=== PATIENT | male | born 1965 | race Caucasian/White ===

== ENCOUNTER → 2018-06-05 07:06 | Outpatient (CLI) | payer BC, SELFPAY ==
[2018-06-05 08:35] LABS: Absolute Lymphocyte Count 3.41 X10^3/ul (0.83-4.51); Absolute Neutrophil Count 4.7 X10^3/uL (2.0-7.7); Basophil# 0.08 X10^3/uL; Basophil% 0.8 % (0-1); Eosinophil# 0.32 X10^3/uL; Eosinophils% 3.3 % (0-5); Hematocrit 42.4 % (40-54); Hemoglobin 14.2 g/dl (13.0-16.5); Lymphocyte # 3.41 X10^3/ul (4.0); Lymphocyte % 34.9 % (19-41); Mean Corp Hgb Conc 33.5 g/gl (32-36); Mean Corpuscular Hgb 32.5 pg (27.0-32.0); Mean Platelet Vol. 9.4 fl (6.2-12.0); Monocyte# 1.22 X10^3/uL; Monocyte% 12.5 % (0-10); Neutrophil # 4.71 X10^3/uL (2.7-7.7); Neutrophil % 48.3 % (47-70); POSITIVE COUNT NO; POSITIVE DIFFERENTIAL NO; POSITIVE MORPHOLOGY NO; Platelet Count 297 K/mm3 (150-450); RBC Distribution Width CV 13.1 % (11.6-14.6); RBC Distribution Width SD 46.2 fl (35.1-43.9); Red Blood Count 4.37 M/mm3 (4.6-6.2); White Blood Count 9.8 K/mm3 (4.4-11.0)
[2018-06-05 09:07] LABS: ALB/GLOB Ratio 1.1 RATIO (0.9-2.4); AST(SGOT) 19 U/L (15-37); Alanine Aminotransfer ALT/SGPT 28 U/L (16-61); Albumin, Serum 3.9 g/dL (3.2-5.0); Alkaline Phosphatase 59 U/L (45-117); Anion Gap 6 (5-15); BUN 17 mg/dL (7-18); Calcium,Total 8.8 mg/dL (8.5-10.1); Chloride 105 mmol/L (98-107); Cholesterol 219 mg/dL (200); Creatinine, Serum 1.06 mg/dL (0.70-1.30); EST Glomerular Filtration Rate 78 mL/min (>60); Est Glom Filt Rate - Afr Amer 94 mL/min (>60); Globulin 3.5 g/dL (2.2-4.2); Glucose 93 mg/dL (74-106); High Density Lipoprotein 43 mg/dL; Potassium 4.4 mmol/L (3.5-5.1); Protein, Total 7.4 g/dL (6.4-8.2); Sodium Level 139 mmol/L (136-145); Thyroid Stim Hormone (TSH) 2.12 uIU/mL (0.358-3.74); Triglycerides 79 mg/dL; Very Low Density Lipoprotein 16 mg/dL (5-40)
== END ==
DX: R07.89 Other chest pain (principal)
CPT/HCPCS: 36415; 80053; 80061; 84443; 85025

== ENCOUNTER → 2018-12-01 16:58 | Outpatient (CLI) | payer BC, SELFPAY ==
--- NOTE | 2018-12-01 17:07 | MRI_ITS ---
STUDY: MRI CERVICAL SPINE WITHOUT CONTRAST REASON FOR EXAM: Male, 53 years old. Neck pain TECHNIQUE: Standardized fat and water weighted pulse sequences were obtained in the sagittal and axial planes. COMPARISON: None FINDINGS: Normal foramen magnum and brainstem-cervical cord junction. Normal craniovertebral junction. Normal anterior atlantoaxial articulation. Normal odontoid process. Normal cervical lordosis. Normal vertebral bodies and posterior osseous elements. C2-3: Normal endplates. Normal disc height, signal and morphology. Normal central canal and intervertebral neural foramina. C3-4: Endplate spondylosis. Central and paracentral disc bulge. Degenerative changes of the bilateral facet joints and uncovertebral joints. Mild narrowing of the central canal and the bilateral intervertebral neural foramina. C4-5: Endplate spondylosis. Central and paracentral disc bulge. Degenerative changes of the bilateral facet joints and uncovertebral joints. Mild narrowing of the central canal. Mild right and moderate left intervertebral neural foraminal narrowing. C5-6: Endplate spondylosis. Central and paracentral disc bulge. Degenerative changes of the bilateral facet joints and uncovertebral joints. Moderate narrowing of the central canal and severe narrowing of the bilateral intervertebral neural foramina. C6-7: Anterior fusion in good alignment with a solid bony bridging. Normal central canal and intervertebral neural foramina. C7-T1: Normal endplates. Normal disc height, signal and morphology. Normal central canal and intervertebral neural foramina. Normal cervical cord. Normal visualized soft tissue structures. MRI/Spine Cervical (Routine) IMPRESSION: Multilevel degenerative changes most severe at C5-6, as described above. Electronically Signed: Lynette Amato MD at 6:29 EST Tel , Service support ,
== END ==
PROVIDERS: Referring Provider Anesthesiology Pain Medicine; Visit Provider Anesthesiology Pain Medicine
DX: M54.2 Cervicalgia (principal)
CPT/HCPCS: 72141

== ENCOUNTER → 2019-08-03 06:31 | Outpatient (CLI) | payer BC, SELFPAY ==
[2019-08-03 07:25] LABS: Hematocrit 41.9 % (40-54); Hemoglobin 13.8 g/dL (13.0-16.5); Mean Corp Hgb Conc 32.9 g/dL (32-36); Mean Corpuscular Hgb 31.8 pg (27.0-32.0); Mean Corpuscular Volume 96.5 fL (80-94); Mean Platelet Vol. 9.6 fl (6.2-12.0); Platelet Count 284 K/mm3 (150-450); RBC Distribution Width CV 12.8 % (11.6-14.6); RBC Distribution Width SD 45.7 fl (35.1-43.9); Red Blood Count 4.34 M/mm3 (4.6-6.2); White Blood Count 7.1 K/mm3 (4.4-11.0)
[2019-08-03 08:12] LABS: ALB/GLOB Ratio 1.2 RATIO (0.9-2.4); AST(SGOT) 18 U/L (15-37); Alanine Aminotransfer ALT/SGPT 22 U/L (16-61); Albumin, Serum 3.8 g/dL (3.2-5.0); Alkaline Phosphatase 61 U/L (45-117); Anion Gap 4 (5-15); BUN 16 mg/dL (7-18); BUN/Creat Ratio 15.4 RATIO (10-20); Chloride 109 mmol/L (98-107); Cholesterol 191 mg/dL (200); Creatinine, Serum 1.04 mg/dL (0.70-1.30); EST Glomerular Filtration Rate 79 mL/min (>60); Est Glom Filt Rate - Afr Amer 96 mL/min (>60); Globulin 3.3 g/dL (2.2-4.2); Glucose 102 mg/dL (74-106); High Density Lipoprotein 52 mg/dL; Potassium 4.7 mmol/L (3.5-5.1); Protein, Total 7.1 g/dL (6.4-8.2); Sodium Level 140 mmol/L (136-145); Thyroid Stim Hormone (TSH) 1.45 uIU/mL (0.358-3.74); Triglycerides 71 mg/dL; Very Low Density Lipoprotein 14 mg/dL (5-40)
== END ==
DX: Z13.220 Encounter for screening for lipoid disorders (principal); D64.9 Anemia, unspecified; Z12.5 Encounter for screening for malignant neoplasm of prostate; R53.82 Chronic fatigue, unspecified; E87.8 Other disorders of electrolyte and fluid balance, not elsewhere classified
CPT/HCPCS: 36415; 80053; 80061; 84153; 84443; 85027; G0103

== ENCOUNTER 2022-01-23 06:23 | Outpatient (CLI) | payer BC, SELFPAY ==
--- NOTE | 2022-01-23 06:40 | MRI_ITS ---
STUDY: MRI CERVICAL SPINE WITHOUT CONTRAST REASON FOR EXAM: Male, 56 years old. NECK PAIN, RADICULOPATHY, RT HAND NUMBNESS, HX PRIOR SURGERY 14 YRS AGO TECHNIQUE: Standardized fat and water weighted pulse sequences were obtained in the sagittal and axial planes. COMPARISON: MRI of the cervical spine dated December 01, 2018 FINDINGS: Normal foramen magnum and brainstem-cervical cord junction. Normal craniovertebral junction. Normal anterior atlantoaxial articulation. Normal odontoid process. There is straightening of the normal cervical lordosis. Disc desiccation is present at all levels. Stable anterior cortical plate-screw construct and interbody grafts at the C6-C7 levels. C2-3: Normal endplates. Diffuse disc desiccation. Normal disc height and morphology. Normal central canal and intervertebral neural foramina. C3-4: Normal endplates. Mild to moderate disc space narrowing with a mild diffuse disc spur complex contributing to mild central canal stenosis and mass effect on the anterior aspect of the cord without direct compression. Normal right neural foramen. Mild left foraminal stenosis without nerve root compression due to uncovertebral and facet joint hypertrophy. C4-5: Normal endplates. Diffuse disc desiccation mild disc space narrowing posteriorly with an associated shallow left paracentral disc protrusion resulting in compression on anterior aspect of the cord and mild focal central canal stenosis and compression of the exiting left nerve root. Mild left foraminal stenosis due to uncovertebral and facet joint hypertrophy. Normal right neural foramen. C5-6: Moderate disc space narrowing with a diffuse disc osteophyte complex resulting in compression on the left anterior aspect of the cord and mild mass effect on the right anterior aspect of the cord. Moderate right foraminal stenosis with nerve root compression secondary to uncovertebral hypertrophy. Normal left neural foramen. C6-7: Normal endplates. Normal disc height, signal and morphology. Normal central canal and intervertebral neural foramina. C7-T1: Normal endplates. Normal disc height, signal and morphology. Normal central canal and intervertebral neural foramina. Normal cervical cord. There is no demonstrated cervical cord syrinx cavity. Normal visualized soft tissue structures. MRI/Spine Cervical (Routine) IMPRESSION: 1. Multilevel degenerative changes, as described above. No significant interval change from the prior study. 2. Mild central canal stenosis with either mass effect or compression of the cord at C4-C5 and C5-C6. Electronically Signed: Pilo Beyer MD at 13:49 EDT ,
== END 2022-01-23 23:59 | disposition home or self-care (01) ==
PROVIDERS: Referring Provider Anesthesiology Pain Medicine; Visit Provider Anesthesiology Pain Medicine
DX: M54.12 Radiculopathy, cervical region (principal)
CPT/HCPCS: 72141

== ENCOUNTER → 2022-03-01 | Outpatient (CLI) | payer BC, SELFPAY ==
--- NOTE | 2022-03-01 14:49 | ECHOD_ITS ---
Reason For Study: PRE OP Procedure This was a 2D Doppler, Color Flow transthoracic echocardiogram. Exam performed in department. Left Ventricle Normal LV size. Moderate concentric left ventricular hypertrophy. Left ventricular systolic function is normal. The estimated ejection fraction is 60 %. Stage 2 diastolic dysfunction. No regional wall motion abnormalities noted. Right Ventricle Normal RV size. Normal systolic function. Atria Normal left atrium. Normal right atrium. Mitral Valve Normal mitral valve. Tricuspid Valve Normal tricuspid valve. Mild (1+) tricuspid valve insufficiency. Pulmonary artery systolic pressure is 24 mmHg. Aortic Valve Trisinus/trileaflet aortic valve. Pulmonic Valve Normal pulmonic valve. Great Vessels Normal aortic root. The pulmonary artery is normal size. Normal inferior vena cava. Pericardium/Pleural No pericardial effusion. MMode/2D Measurements & Calculations LVIDd: 4.5 cm IVSd: 1.5 cm Ao root diam: 2.9 cm LVIDs: 2.2 cm LVPWd: 1.3 cm RVDd: 3.5 cm FS: 51.0 % LAV(MOD-bp): 46.2 ml LVAd ap4: 23.6 cm2 LVAd ap2: 24.5 cm2 LAV(MOD-bp) Indexed: 23.0 ml/m2 LVLd ap4: 7.5 cm LVLd ap2: 7.5 cm LAV(MOD-sp2): 53.5 ml EDV(MOD-sp4): 62.2 ml EDV(MOD-sp2): 64.9 ml LAV(MOD-sp4): 39.4 ml EDV(sp4-el): 63.0 ml EDV(sp2-el): 67.8 ml LVAs ap4: 11.9 cm2 LVAs ap2: 13.7 cm2 LVLs ap4: 6.0 cm LVLs ap2: 6.6 cm ESV(MOD-sp4): 23.9 ml ESV(MOD-sp2): 25.7 ml ESV(sp4-el): 20.3 ml ESV(sp2-el): 24.0 ml EF(MOD-sp4): 61.6 % EF(MOD-sp2): 60.4 % EF(sp4-el): 67.8 % SV(MOD-sp4): 38.3 ml SV(MOD-sp2): 39.2 ml SV(sp4-el): 42.7 ml LA dimension(2D): 3.7 cm Doppler Measurements & Calculations MV E max guevara: 73.8 cm/sec Lat Peak E' Guevara: 6.8 cm/sec Med Peak E' Guevara: 8.6 cm/sec MV A max guevara: 64.8 cm/sec E/E' lat: 10.9 E/E' med: 8.5 MV E/A: 1.1 Ao V2 max: 145.6 cm/sec LV V1 max: 123.6 cm/sec TR max guevara: 229.4 cm/sec Ao max P.1 mmHg LV V1 max P.4 mmHg TR max P.0 mmHg ECHO/Echo Complete Interpretation Summary Normal LV size. Left ventricular systolic function is normal. The estimated ejection fraction is 60 %. Moderate concentric left ventricular hypertrophy. Stage 2 diastolic dysfunction. Ordering Physician: Ritesh Granger Referring Physician: Ritesh Granger Performed By: Dione Dumont RCS
== END | disposition home or self-care (01) ==
LOC: CVS 14:48
PROVIDERS: Referring Provider Internal Medicine Cardiovascular Disease; Visit Provider Internal Medicine Cardiovascular Disease
DX: I49.3 Ventricular premature depolarization (principal); R94.31 Abnormal electrocardiogram [ECG] [EKG]
CPT/HCPCS: 93306

== ENCOUNTER 2022-03-06 10:59 | Observation (INO) | payer BC, SELFPAY ==
--- NOTE | 2022-02-26 07:10 | EKG12_ITS ---
Test Reason : PRE OP Blood Pressure : / mmHG Vent. Rate : 070 BPM Atrial Rate : 070 BPM P-R Int : 156 ms QRS Dur : 094 ms QT Int : 352 ms P-R-T Axes : 083 070 099 degrees QTc Int : 380 ms Sinus rhythm with Premature supraventricular complexes Biatrial enlargement Septal infarct , age undetermined Lateral infarct , age undetermined Abnormal ECG Confirmed by OLIVIA AYOUB MD ([id number]), acquisitions editor DAVE WILEY ([id number]) on 02/26/2022 1:30:28 PM Referred By: Jamaal Gurrola Confirmed By:OLIVIA AYOUB MD
[2022-02-26 07:57] LABS: Absolute Lymphocyte Count 2.22 X10^3/uL (0.83-4.51); Absolute Neutrophil Count 4.3 X10^3/uL (2.0-7.7); Basophil# 0.08 X10^3/uL; Eosinophils% 3.9 % (0-5); Hematocrit 43.7 % (40-54); Hemoglobin 14.5 g/dL (13.0-16.5); Lymphocyte # 2.22 X10^3/ul (0.83-4.51); Lymphocyte % 28.8 % (19-41); Mean Corp Hgb Conc 33.2 g/dL (32-36); Mean Corpuscular Hgb 32.6 pg (27.0-32.0); Mean Corpuscular Volume 98.2 fL (80-94); Mean Platelet Vol. 9.7 fl (6.2-12.0); Monocyte% 10.4 % (0-10); NRBC Flagged by Analyzer 0 % (0-5); Neutrophil # 4.28 X10^3/uL (2.7-7.7); Neutrophil % 55.5 % (47-70); Platelet Count 309 K/mm3 (150-450); RBC Distribution Width CV 12.8 % (11.6-14.6); Red Blood Count 4.45 M/mm3 (4.6-6.2); White Blood Count 7.7 K/mm3 (4.4-11.0)
[2022-02-26 08:30] LABS: Anion Gap 4 (5-15); BUN 15 mg/dL (7-18); BUN/Creat Ratio 14.3 RATIO (10-20); Calcium,Total 8.6 mg/dL (8.5-10.1); Chloride 108 mmol/L (98-107); Creatinine, Serum 1.05 mg/dL (0.70-1.30); EST Glomerular Filtration Rate 77 mL/min (>60); Est Glom Filt Rate - Afr Amer 94 mL/min (>60); Glucose 113 mg/dL (74-106); Potassium 4.5 mmol/L (3.5-5.1); Sodium Level 138 mmol/L (136-145)
[2022-02-26 09:23] LABS: Magnesium 2.4 mg/dL (1.6-2.6)
[2022-02-26 09:54] LABS: HIV - WCH Non-Reactive (Nonreactive); Hepatitis B Surface Antibody Non-Reactive; Hepatitis C Antibody Non-Reactive (Nonreactive)
[2022-02-27 11:10] LABS: Hepatitis A AB, Total Negative (Negative)
--- NOTE | 2022-03-05 14:57 | HP.PCM_ITS ---
History and Physical Date of Admission: 03/06/22 MR#:[id number]:[id number]: ZACK RODRIGUEZRep #:[id number]:[id number] Provider:Dr. Jamaal Gurrola, Age/Sex: 56/M [facility] [place] Int[place] Intake Visit Reasons: cervical spine Allergies No Known Allergies Allergy (Verified 02/20/22 13:43) PFSH Medical History Arthritis History of steroid therapy Injury of head and neck Leg cramps Smoker Surgical History (Updated 02/20/22 @ 13:53 by Julissa Mendiola) previous ACDIF C6/7 Social History Smoking Status: Current every day smoker tobacco type: cigarettes CERVICAL SPINE Details: Parts of this documentation were recorded by a scribe, this documentation accurately reflects the service provided and the decisions made by me, Dr. Jamaal Gurrola, 02/09/22 0804. ZACK RODRIGUEZ is a 56 year old M NEW Pt here today for neck pain. Pt states he has been having neck pain for about 4 months. Pt states 14 years ago he had a disc surgery and has had ongoing issues since. Pt states he has been going to Dr. Golden for injections with the last one being a few weeks ago but only slightly helped for 4 days. Pt states right side is worse than the left. Pt states he has radicular pain all the way down his right arm all the way down to his finger tips. Pt describes discomfort as and electric shock down his arm. Pt also states he has numbness and tingling in his right arm down to his finger tips which is worsening. Pt states if he grabs his steering wheel to drive this intensifies the pain and shocking feeling. Pt states he has been going to a Chiropractor which did not help at all and felt worse after treatments. Zack is a most pleasant gentleman 56 years old who has a chief complaint of pain in the right side of his neck that radiates down his right arm in a classic C6 dermatome. This started many many months ago and is gradually gotten worse and for the last several weeks has been severe. 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 He had an anterior cervical fusion at C6-7 about 14 years ago. He did well with the surgery and it helped him for a very long time. On examination he has positive Spurling's to the right side. He has pain with extension or flexion of the cervical spine. Has mild weakness of the C6 extensors of the wrist on the right side. Has decreased brachioradialis reflex on the right as compared to the left. The other muscles all have good muscle strength bilaterally. He has absent triceps on both side 1+ biceps reflexes on both sides. He has no long tract signs. Clonus is absent Babinski's are downgoing. Plain x-rays of his cervical spine notes read that he has a decreased disc space at C5-6 above the old 6 7 fusion. The 6 7 fusion appears good. Hardware also appears to be in great good shape. MRI scan done recently demonstrates that he has foraminal stenosis because of an uncinate process hypertrophy at C5-6 on the right side consistent with his C6 symptomatology. We will schedule him for anterior cervical fusion at C5-6 with a stand-alone plate. I will see him again at preop. Ortho Exam General General: Yes no acute distress Neurologic: Yes alert and Yes oriented x3 Psychologic: Yes reasonable and appropriate Coding Level of Care Code Off vis,new,level 3 Diagnoses Cervical disc disorder at C5-C6 level with radiculopathy M50.122 Time Spent (min) 30 Assessment and Plan Assessment and Plan (1) Cervical disc disorder at C5-C6 level with radiculopathy: Status: Acute Plan Details Other Orders: Orders: Cerv Spine 2 or 3 Views Today M54.2
[2022-03-06] VITALS (14 sets, daily range): BP systolic 114–139; BP diastolic 66–98; PULSE 71–83; RESP 16–18; TEMP 36.4–36.8; O2SAT 95–100; BMI 24.6
[2022-03-06] MEDS: Lactated Ringers 1,000 ML 15 ML IV ×2 (06:20→11:42)
[2022-03-06 06:21] LABS: Bedside Glucose 178 mg/dL (74-106)
[2022-03-06] MEDS: dexAMETHasone 10 MG/ML Vial 8 MG IV (06:21)
[2022-03-06] MEDS: Acetaminophen 500 MG Tablet 1000 MG PO ×3 (06:21→21:08)
--- NOTE | 2022-03-06 07:30 | RAD_ITS ---
EXAM: XR CERVICAL SPINE, 1 VIEW CLINICAL INDICATION: ERAS, ANTERIOR CERVICAL FUSION C5-6 TECHNIQUE: Lateral view of the cervical spine. This report was created using [employer] report generation technology. COMPARISON: February 09, 2022 FINDINGS: VERTEBRAE: Radiographic marker at the C6 vertebral body. Anterior fusion of C6 and C7. Preserved vertebral body height. No acute fracture. No spondylolisthesis. Preservation of the normal cervical lordosis. No significant facet arthropathy. DISC SPACES: Disc space narrowing and vertebral body spurring noted at C3-4 and C5-6. SOFT TISSUES: Unremarkable. No prevertebral soft tissue widening. TUBES, LINES AND DEVICES: Orotracheal tube in place. RAD/Spine 1 View Any Level IMPRESSION: Surgical marker at C6 vertebral body. Electronically Signed: Clement Rosas MD at 16:34 EDT ,
--- NOTE | 2022-03-06 07:30 | DISC_PTH ---
PATIENT: ZACK RODRIGUEZ LOC: MS3 U#:[id number] AGE/SX: 57/M [facility] [place]06[facility]: Dr. Jamaal Gurrola DO : 1965 BED: 1 DIS: 03/07/2022 SPEC #: [id number] RECD: 03/06/22 10:49 STATUS: KARLA BOWEN #: [id number] OVNDA: 03/06/22 07:[address]: Jamaal Gurrola DEPT: SURGICAL PATHOLOGY RECD BY: Norma Lyles Tissues: Intervertebral disc, NOS Procedures: Surgery Specimen Level III HEADER OPERATION: ERAS, anterior cervical fusion C5-C6 with standalone cage PRE-OP DIAGNOSIS: Cervical disc disorder at C5-C6 level with radiculopathy TISSUE SUBMITTED: Cervical spine disc MICROSCOPIC DIAGNOSIS Cervical spinal disc, C5-C6: Fragments of fibrocartilaginous tissue with reactive and degenerative changes and bone. LUIS:christopher 03/07/2022 MICROSCOPIC DESCRIPTION Slides are reviewed. GROSS DESCRIPTION Received in fixative is one container labeled with the patient's name and designated cervical spine disc. The specimen consists of multiple pieces of dotson-pink, indurated tissue that in aggregate measure 5 x 3 x 0.3 cm. The specimen is totally submitted in two cassettes. / SJ:rg 03/06/2022 TC:5 CPT: 47270
[2022-03-06] MEDS: Heparin 10,000 UNITS/10 ML Vial 10000 UNITS (08:00)
[2022-03-06] MEDS: Cefazolin 2 GM in 0.9% Normal Saline 100 ML IV (08:00)
--- NOTE | 2022-03-06 08:26 | RAD_ITS ---
EXAM: XR CERVICAL SPINE, 1 VIEW CLINICAL INDICATION: ANTERIOR CERVICAL FUSION C5-6 TECHNIQUE: Lateral view of the cervical spine. This report was created using [employer] report generation technology.Exam done 03.06.22 but is only now available for review. COMPARISON: study done earlier. FINDINGS: VERTEBRAE: Unremarkable. Preserved vertebral body height. No acute fracture. No spondylolisthesis. Preservation of the normal cervical lordosis. No significant facet arthropathy. DISC SPACES: C5-6: Surgical instrument pointing at this level. There is a disc spacer. C6-7: Anterior fusion plate in place. There is a disc spacer. SOFT TISSUES: Unremarkable. No prevertebral soft tissue widening. LUNG APICES: Clear. RAD/Spine 1 View Any Level IMPRESSION: Anterior fusion at C6-7. Electronically Signed: Steffen Braun MD at 17:42 EDT Reading Location ID and State: [facility] / [place] , Service support ,
[2022-03-06] MEDS: THROMBIN (RECOMBINANT) 20,000 UNIT VIAL 20000 UNIT TOPICAL (08:52)
--- NOTE | 2022-03-06 09:23 | RAD_ITS ---
EXAM: XR CERVICAL SPINE, 1 VIEW CLINICAL INDICATION: ANTERIOR CERVICAL FUSION C5-6 TECHNIQUE: Lateral view of the cervical spine. This report was created using [employer] report generation technology. Current exam done 03.06.22 but is only now available for review. COMPARISON: study done earlier. FINDINGS: VERTEBRAE: Preserved vertebral body height. No acute fracture. No spondylolisthesis. Preservation of the normal cervical lordosis. No significant facet arthropathy. DISC SPACES: C5-6: Single superior anterior fusion screw in place. There is a disc spacer. C6-7: Anterior fusion plate in place. There is a disc spacer. SOFT TISSUES: Unremarkable. No prevertebral soft tissue widening. LUNG APICES: Clear. RAD/Spine 1 View Any Level IMPRESSION: Anterior fusion at C5-6 and C6-7. Electronically Signed: Steffen Braun MD at 17:41 EDT Reading Location ID and State: [facility] / [place] , Service support ,
--- NOTE | 2022-03-06 10:00 | RAD_ITS ---
EXAM: XR CERVICAL SPINE, 1 VIEW CLINICAL INDICATION: ANTERIOR CERVICAL FUSION C5-6 TECHNIQUE: Lateral view of the cervical spine. This report was created using [employer] report generation technology. COMPARISON: study done earlier. Exam done 03.06.22 but is only now available for review. FINDINGS: VERTEBRAE: Unremarkable. Preserved vertebral body height. No acute fracture. No spondylolisthesis. Preservation of the normal cervical lordosis. No significant facet arthropathy. DISC SPACES: C5-6: Anterior fusion screws in place. There is a disc spacer. C6-7: Anterior fusion plate in place. There is a disc spacer. SOFT TISSUES: Unremarkable. No prevertebral soft tissue widening. LUNG APICES: Clear. RAD/Spine 1 View Any Level IMPRESSION: Anterior fusion at C5-6 and C6-7. Electronically Signed: Steffen Braun MD at 17:41 EDT Reading Location ID and State: [facility] / [place] , Service support ,
--- NOTE | 2022-03-06 11:06 | OP.PCM_ITS ---
Report of Operation Date of Procedure: 03/06/22 Description of Surgical Findings:: Preoperative diagnosis: Foraminal stenosis with severe right C6 radiculopathy C5-6 Postoperative diagnosis: The same Procedures: #1 anterior cervical fusion C5-6 CPT code 13809 #2 stand-alone cage C5-6 CPT code 06215 Surgeon: Dr. Gurrola First assistants: Rula Bauer PUBLIC HEALTH AIDE and Sudha WATSON Anesthesia: General endotracheal anesthesia administered by [facility] EBL: 25 cc Drains: 1/4 inch [place] Complications: None Procedure: Patient was taken to the OR where he was placed in the supine position on the operating table. He was then placed under general endotracheal anesthesia. A Frances catheter was inserted. Neuro monitoring placed their leads on the patient. Kerlix loop was placed on each wrist in order to pull the shoulders down for x-rays subsequently. A preoperative x-ray was taken with a needle marker in place to know where to start the incision the skin was marked with a very small laceration using the end of a second needle. The right crest and the neck were then prepped and draped in standard fashion. Initially we obtained the bone marrow aspirate from the right ASIS. There was small puncture incision my workers compensation claims assistant placed a Jamshidi needle on the ASIS and tamped it down into the bone marrow and obtained 60 cc of the patient's BMA that was then handed off to the quality control engineering technician was in the room. The quality control engineering technician was then spun down the stem cell from the other cells and concentrated them about 10 times and handed them back to us. I then made an incision over at that predetermined place in line with longer's lines starting in the midline in going to the edge of the right sternocleidomastoid muscle. This was above the old incision with his original surgery was done many years ago. Then elevated the subcutaneous tissues off of the platysma above and below I then split the platysma longitudinally in line with its fibers. Then developed the superficial cervical fascia followed by the exploitation of the pretracheal fascia. Fashion I was able to retract the this trachea and esophagus and strap muscles to the left the sternocleidomastoid and the carotid sheath to the right. Skin good access to the precervical fascia. I opened the pretreatment cervical fascia right where we felt the anterior osteophytes thought to be C5-6 I also was able to observe the top of the old C6-7 plate. Put a needle marker in place and an intraoperative x-ray was taken to confirm that we were indeed at C5-6. We removed the needle and cauterized a hole in the anterior annulus so as to not lose our level. Then cauterized the edge of the longus coli muscles on either side and put the self-retaining group account director retractors in place giving us good access at C5-6. I cut the anterior annulus with a 15 blade removed it and then used a bur to flatten the lip on both halves. Then removed more nucleus from within the disc base. I removed some of the cartilage from the left side including some of the endplate cartilage and put the intervertebral body distractors in place to open up the right side. I then removed the nucleus all the way back to the uncinate process. Note that he had obvious foraminal stenosis using the rao bur I was able to bur the uncinate process repeatedly note that this was a tedious procedure where we would bur some followed by the instillation of cold saline. This was done to keep the both the bur cool and the bone cool since the bone was up against the C6 nerve. This would prevent thermal damage to the nerve. This was done repeatedly until it was a very thin shell of bone left over the base of the C6 nerve. Using sharp curettes I removed the remaining shell of bone right off of the base of the nerve completely decompressing it. I then checked it again with a nerve probe and was found to be satisfactory with completely open foramen. I then removed remaining cartilage off both endplates and then I all moved to the distractor to the right side and then remove the other remaining cartilage off both endplates there I used a rao bur also to bur the uncinate processes on each side to make more room for a large cage. We then took her measurements for the cage we decided to use an 8 mm high cage of the stand-alone variety. I used a broach to broach the space repeatedly to get good bleeding endplate. We then filled an 8 mm cage with demineralized bone matrix. It was then soaked in the patient's own concentrated stem cells. Then tamped into place and countersunk it a couple of millimeters. Using the angled awl I was able to punch a hole at an angle through the guide and I used a angled U joint screwdriver to inserted and countersink it Plast its locking mechanism. 1 into C5. We then put the 1 down into C6 on the opposite side of the cage in the same fashion by using the awl followed by the insertion of the 14 mm screw. This was observed with x-ray was found to be very satisfactory with good position of both screws and that the cage. We then placed frame directly over the case to prevent adhesions to the trachea or the esophagus. Noted we thoroughly irrigated with copious amounts of sterile saline saline repeatedly throughout the case. A 1/4 inch [place] drain was left in place I then closed the platysma and running fashion with 5-0 Vicryl followed closure with subcutaneous tissues with 5-0 Vicryl in interrupted fashion this approximated the skin there was no need for other stitches. Safety pin was placed through the drain to prevent a suction into the wound and sterile dressings were then applied. The patient was then recovered in the OR moved to his hospital bed and taken to recovery in satisfactory condition. Is the end of operative summary on Ludwig Arita. This is Dr. Gurrola dictating.
[2022-03-06] MEDS: Lactated Ringers 1,000 ML 100 ML IV (13:33)
[2022-03-06] MEDS: Ensure Surgery 237 ML LIQUID PO ×2 (13:33→16:36)
[2022-03-06] MEDS: 0.9% Saline Lock 10 ML Syringe IV ×5 (13:34→23:56)
[2022-03-06] MEDS: dexAMETHasone 4 MG/ML Vial IV ×2 (13:34→18:30)
[2022-03-06] MEDS: Morphine 4 MG/ML Syringe IV (13:34)
--- NOTE | 2022-03-06 15:07 | PN.HOSP_ITS ---
Subjective Subjective Mr. Arita is a 57-year-old white male who had been experiencing neck pain for approximately 4 months after previous surgical fusion at C6 and C7 14 years ago. He had been seeing Dr. Golden for injections and this helped some but his radicular symptoms were worsening and he was having more neuropathic issues. He had also been undergoing primary care nurse practitioner and was feeling worse after his treatments. An MRI was done and demonstrated foraminal stenosis secondary to uncinate process hypertrophy at C5-C6 and he was scheduled for an anterior cervical fusion at C5-C6 which was performed today. Postoperatively a 1/4 inch [place] drain was placed. We have been consulted for postoperative medical management. Past medical history includes arthritis and history of tobacco abuse. Patient is currently only on ibuprofen. He had a preop echocardiogram which showed an EF of 60% moderate concentric left hypertrophy and stage II diastolic dysfunction. He takes no medication for hypertension. Patient is currently complaining of some pain however has pain medication ordered. He also is complaining of hunger. Objective Data Objective Data Vital Signs: Vital Signs Temp Pulse Resp BP Pulse Ox 97.9 F 71 18 117/86 H 95 03/06/22 14:55 03/06/22 14:55 03/06/22 14:55 03/06/22 14:55 03/06/22 14:55 Oxygen Flow Rate (L/min) 4 Oxygen Delivery Method Room Air Weight: 80.2 kg Body Mass Index (BMI) 24.6 Intake & Output: Intake and Output for Last 24 Hours 03/04/22 03/05/22 03/06/22 23:59 23:59 23:59 Intake Total 3212 / 3212 Output Total 1200 / 1200 Balance 2011 Lab / Micro Data Result Diagrams: 02/26/22 07:30 02/26/22 07:30 Labs: Laboratory Results - last 24 hr 03/06/22 06:06: POC Glucose 178 H Micro: Microbiology 03/05/22 06:45 Interface Orders SARS-CoV-2 Antigen (Rapid) - Final 02/26/22 07:30 Swab (Method) Nasal Screen MRSA/MSSA - Final Physical Exam Const alert and oriented x3 Constitutional Narrative: Middle-aged white male sitting up in bed, soft cervical collar in place, at bedside, patient appears mildly uncomfortable however nontoxic Exam Limitations: no limitations HEENT head/scalp atraumatic and moist oral mucous membranes HEENT Narrative: Mallampati 2, no thrush Head and Scalp: normocephalic Resp normal respiratory effort, no retractions, no use of accessory muscles and clear to auscultation bilaterally Auscultation: Negative for crackles, rales, rhonchi or wheezes Cardio regular rate, regular rhythm, S1 normal heart sound, S2 normal heart sound, no murmurs, no rub, no gallops, no clicks and no JVD GI normal to inspection, nondistended, normoactive bowel sounds, soft to palpation, non-tender and non-distended; Negative for hepatosplenomegaly Extremity no clubbing, cyanosis or edema Peripheral Pulses: Yes pulses 2+ throughout Neuro oriented x3, CN's II-XII intact bilaterally, moves all extremities and no focal motor deficits Sensorium / Orientation: awake and alert Speech: speech normal Assessment & Plan Assessment/Plan (1) Cervical disc disorder at C5-C6 level with radiculopathy: (2) Tobacco abuse: (3) Neck pain: PLAN: Cervical stenosis status post C5-C6 anterior fusion -Postop management per primary service -Start MiraLAX Tobacco abuse -Recommend cessation -Nicotine patch 21 mcg started -Did discuss the detrimental effects of tobacco abuse on spinal surgery and he aling DVT prophylaxis -Chemoprophylaxis Per primary -SCDs Charges/Coding Visit Charges Office Visits / Consults: 12316 IP Consult L1
[2022-03-06] MEDS: Cefazolin 1 GM/50 ML BAG IV ×2 (16:36→23:56)
[2022-03-06] MEDS: Morphine 2 MG/ML Syringe IV ×2 (16:37→21:09)
[2022-03-06] MEDS: dexAMETHasone 4 MG/ML Vial 2 MG IV (23:56)
[2022-03-06] MEDS: Zolpidem Tartrate 5 MG Tablet PO (23:56)
[2022-03-07 00:02] VITALS: BP 110/73; PULSE 70; RESP 18; TEMP 36.6; O2SAT 95
[2022-03-07 05:48] VITALS: BP 122/75; PULSE 84; RESP 18; TEMP 36.9; O2SAT 95
[2022-03-07] MEDS: dexAMETHasone 4 MG/ML Vial 2 MG IV (05:51)
[2022-03-07] MEDS: Acetaminophen 500 MG Tablet 1000 MG PO (05:51)
[2022-03-07] MEDS: 0.9% Saline Lock 10 ML Syringe IV (05:51)
[2022-03-07 08:04] VITALS: O2SAT 95
[2022-03-07] MEDS: Polyethylene Glycol 3350 17 GM PACKET PO (08:32)
[2022-03-07] MEDS: Ensure Surgery 237 ML LIQUID PO ×2 (08:32→11:38)
[2022-03-07 08:44] VITALS: BP 142/78; PULSE 86; RESP 18; TEMP 36.8; O2SAT 100
[2022-03-07 09:19] VITALS: O2SAT 97
--- NOTE | 2022-03-07 10:15 | CASEMGMT ---
VALERIE BURCH Assessment: Face to Face with pt for initial transition planning/care coordination assessment. RN KIERSTEN introduced self and role at [facility], pt voices understanding and consents to assessment. Pt is A/O x4 and answers all questions appropriately at this time. Pt sitting up in chair anxious to go home. at bedside. Care providers, pharmacy, and demographics verified/updated. Admitting Dx: anterior cervical fusion rt C5-6 PCP:[place] Specialists:Chantel, pain mgmt; Galileo, spine OR Preferred Pharmacy: [facility] Insurance: [employer] Prescription Benefit: yes LW/HPOA: Pt denies having a LW/DPOA and denies need for info regarding AD. LNOK: Meghan Arita, Living Arrangements: Pt lives with and son in a two story house with 3 steps to enter with a rail. Pt reports he was I in ADL's prior to surgery. Pt states he has worked with therapy this morning on the steps and did well without device. Transportation: Pt drives self and denies concerns with transportation. Pt will transport him until he can drive again. DME/HHC/SNF: Pt denies having any DME in the home, hx of HHC or SNF stays. Pt states no concerns with going home at time of dc. Pt states no further concerns/needs. CM to follow. Advised pt to ask CM if any further question/concerns/needs arise, voices understanding. Pt Goal: Home Plan: Home
--- NOTE | 2022-03-07 10:39 | PCM.PN.HOSP ---
Subjective Subjective Patient states he is feeling better this morning with regards to pain. He states he had to move around to get out of bed as that was problematic. He is anxious to eat however does complain of some abnormal sensation with swallowing consistent with more swelling. He has had no trouble with liquids at this time. He is hoping to go home later today. Objective Data Objective Data Vital Signs: Vital Signs Temp Pulse Resp BP Pulse Ox 98.2 F 86 18 142/78 H 100 03/07/22 08:44 03/07/22 08:44 03/07/22 08:44 03/07/22 08:44 03/07/22 08:44 Oxygen Flow Rate (L/min) 4 Oxygen Delivery Method Room Air Weight: 80.2 kg Body Mass Index (BMI) 24.6 Intake & Output: Intake and Output for Last 24 Hours 03/05/22 03/06/22 03/07/22 23:59 23:59 23:59 Intake Total 4812 / 4812 410 / 410 Output Total 3700 / 3700 1850 / 1850 Balance 1112 / 1112 -1440 / -1440 Lab / Micro Data Result Diagrams: 02/26/22 07:30 02/26/22 07:30 Micro: Microbiology 03/05/22 06:45 Interface Orders SARS-CoV-2 Antigen (Rapid) - Final 02/26/22 07:30 Swab (Method) Nasal Screen MRSA/MSSA - Final Physical Exam Const alert and oriented x3 Constitutional Narrative: Middle-aged white male sitting up in a chair at the bedside, soft cervical collar in place, nursing is in the room, patient appears comfortable and watching television Exam Limitations: no limitations HEENT head/scalp atraumatic and moist oral mucous membranes HEENT Narrative: Cervical collar in place Head and Scalp: normocephalic Resp normal respiratory effort, no retractions, no use of accessory muscles and clear to auscultation bilaterally Resp Narrative: Diminished but clear Auscultation: Negative for crackles, rales, rhonchi or wheezes Cardio regular rate, regular rhythm, S1 normal heart sound, S2 normal heart sound, no murmurs, no rub, no gallops, no clicks and no JVD GI normal to inspection, nondistended, normoactive bowel sounds, soft to palpation, non-tender and non-distended; Negative for hepatosplenomegaly Extremity no clubbing, cyanosis or edema Peripheral Pulses: Yes pulses 2+ throughout Neuro oriented x3 and moves all extremities Sensorium / Orientation: awake and alert Speech: speech normal Assessment & Plan Assessment/Plan (1) Cervical disc disorder at C5-C6 level with radiculopathy: (2) Tobacco abuse: (3) Neck pain: PLAN: Cervical stenosis status post C5-C6 anterior fusion -Postop management per primary service -Start MiraLAX Tobacco abuse -Recommend cessation -Nicotine patch 21 mcg started -Did discuss the detrimental effects of tobacco abuse on spinal surgery and healing DVT prophylaxis -Chemoprophylaxis Per primary -SCDs Disposition: -Medically stable for discharge home. We will follow peripherally while patient remains hospitalized. No current pending medical issues. Would recommend patient utilize MiraLAX or stool softener while he is on opiates for pain management. Charges/Coding Visit Charges OBSV E&M: 17853 Subsequent observation care L1
--- NOTE | 2022-03-07 12:25 | PCM.DC ---
Discharge Instructions Follow Up Care Test Results: Test results from this visit will be discussed in further detail at your follow-up appointment, if applicable. Discharge Plan Admission Admit Date/Time: 03/06/22 10:59 Primary Reason for Your Visit: cervical fusion Attending Provider: Jamaal Gurrola Consulting Providers: Dayana Tejada Discharge Orders/Prescriptions Prescriptions: No Action ibuprofen 600 mg Tablet 600 mg PO Q6H PRN (Reason: Pain) RF: 0 Referrals / Follow Up: PRINCESS KNAPP [Other] Disposition Disposition (needs filled in before D/C Order can be placed): Home, Self Care
--- NOTE | 2022-03-07 12:27 | DS.PCM_ITS ---
Providers Date of Admission: 03/06/22 Primary Care Physician: PRINCESS KNAPP Consultations 03/06/22 12:42 Consult: Hospitalist Routine Consulting Provider: Dayana Tejada Reason for Consult: med management EMERGENT Consult: No MD Notified: Yes Date Notified: 03/06/22 Time Notified: 12:48 Method of Notification: Text Reason For Visit: ANTERIOR CERVICAL FUSION RT C5-6 Diagnosis Discharge Diagnosis (1) Cervical disc disorder at C5-C6 level with radiculopathy: Status: Acute Code(s): M50.122 - Cervical disc disorder at C5-C6 level with radiculopathy (2) Tobacco abuse: Status: Chronic Code(s): Z72.0 - Tobacco use (3) Neck pain: Status: Acute Code(s): M54.2 - Cervicalgia Medications at Discharge Home Medications ibuprofen 600 mg PO Q6H PRN 02/20/22 Hospital Course Summary of Care Provided Hospital Course: Mr. Arita was admitted yesterday 05 March. He underwent anterior cervical fusion at the C5-6 level. Tolerated the procedure well. Discharged today he is doing very well. His right arm pain is gone. His voice is clear and he has no Balaji syndrome. Is been taking simple Tylenol for pain. He was given postop instructions regarding his activities. He can lift up to 20 pounds now. Can return to work in about a week to 10 days. 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 He knows to come and see me in my office a week from next Saturday. This is the end of discharge summary on Ludwig Arita. This is Dr. Gurrola dictating. Weight / BMI Weight Weight: 176 lb 12.972 oz Body Mass Index (BMI) 24.6 ABG / Lab / Microbiology Data Result Diagrams: 02/26/22 07:30 02/26/22 07:30 Microbiology: Microbiology 03/05/22 06:45 Interface Orders SARS-CoV-2 Antigen (Rapid) - Final 02/26/22 07:30 Swab (Method) Nasal Screen MRSA/MSSA - Final Meaningful Use Info Meaningful Use Diagnoses (Choose all that apply): None applicable Discharge Plan Admission Admit Date/Time: 03/06/22 10:59 Primary Reason for Your Visit: cervical fusion Attending Provider: Gurrola,Jamaal Consulting Providers: Dayana Tejada Discharge Orders/Prescriptions Prescriptions: No Action ibuprofen 600 mg Tablet 600 mg PO Q6H PRN (Reason: Pain) RF: 0 Referrals / Follow Up: PRINCESS KNAPP [Other] Disposition Disposition (needs filled in before D/C Order can be placed): Home, Self Care
== END 2022-03-07 12:45 | disposition home or self-care (01) ==
LOC: MS3 11:58
PROVIDERS: Anesthesiology; Admitting Provider Orthopaedic Surgery; Referring Provider Orthopaedic Surgery; Visit Provider Orthopaedic Surgery
PROC: (CPT 22551; principal; 2022-03-06 07:00)
DX: M50.122 Cervical disc disorder at C5-C6 level with radiculopathy (principal); F17.210 Nicotine dependence, cigarettes, uncomplicated; M48.02 Spinal stenosis, cervical region
CPT/HCPCS: 22551; 20931; 22853; 00670; 36415; 72020; 80048; 82962; 83735; 85025; 86703; 86706; 86708; 86803; 87081; 87426; 88304; 93005; 96361; 96365; 96366; 96375; 96376; 97161; 97530; 99218; 99251; 99406; C1713; C9803; J7120; A4216; G0378; G0463; J3475

== ENCOUNTER → 2022-08-06 | Outpatient (CLI) | payer BC, SELFPAY ==
--- NOTE | 2022-08-06 06:29 | MRI_ITS ---
STUDY: MRI CERVICAL SPINE WITHOUT CONTRAST REASON FOR EXAM: Male, 57 years old. neck pain --INTO L SHOULDER TECHNIQUE: Standardized fat and water weighted pulse sequences were obtained in the sagittal and axial planes. COMPARISON: MRI of the cervical spine dated January 23, 2022. X-ray of the cervical spine dated July 26, 2022 FINDINGS: Normal foramen magnum and brainstem-cervical cord junction. Normal craniovertebral junction. There are degenerative changes of the anterior atlantoaxial articulation. Normal odontoid process. There is reversal of the normal cervical lordosis. Disc desiccation is present at all levels. Interval appearance of an interbody graft at C5-C6 level with anchoring screws in both overlying endplates. Stable anterior cortical plate-screw construct and interbody grafts at the C6-C7 levels. C2-3: Normal endplates. Diffuse disc desiccation. Normal disc height and morphology. Normal central canal and intervertebral neural foramina. C3-4: Mild MODIC endplate degenerative signal is present. Moderate disc space narrowing with a mild diffuse disc spur complex contributing to mild central canal stenosis and mass effect on the anterior aspect of the cord without direct compression. Mild right foraminal stenosis secondary to uncovertebral hypertrophy. Severe left foraminal stenosis with nerve root compression due to to uncovertebral and facet joint hypertrophy. C4-5: Normal endplates. Diffuse disc desiccation and mild posterior disc space narrowing, with and associated shallow left paracentral disc protrusion resulting in compression on anterior aspect of the cord and mild focal central canal stenosis and compression of the exiting left nerve root. Severe left foraminal stenosis with nerve root compression due to uncovertebral and facet joint hypertrophy. Moderate right foraminal stenosis with nerve root compression secondary to uncovertebral and facet joint hypertrophy. C5-6: Interval placement of an interbody graft with anchoring screws in the overlying endplates. Posterior disc spur complex results in mild mass effect on the anterior aspect of the cord and mild central canal stenosis. Mild right foraminal stenosis. Moderate left foraminal stenosis proximally with nerve root compression secondary to uncovertebral hypertrophy. Mild MODIC endplate degenerative signal is present. C6-7: Anterior cortical plate-screw construct with osseous fusion across the disc space. No posterior disc herniation or bulging or extrusions. Normal central canal and intervertebral neural foramina. C7-T1: Normal endplates. Normal disc height, signal and morphology. Normal central canal and intervertebral neural foramina. Normal cervical cord. There is no demonstrated cervical cord injury or syrinx formation. Normal visualized soft tissue structures. MRI/Spine Cervical (Routine) IMPRESSION: 1. Multilevel degenerative changes, as described above. Interval progression of degenerative changes at several levels. 2. Mild central canal stenosis with mass effect on anterior aspect of the cord at C4-C5 and C5-C6 3. Mild central canal stenosis at C3-C4 4. Severe left foraminal stenosis with nerve root compression at C3-C4 and C4-C5 5. Interval appearance of an interbody graft at C5-C6 level with anchoring screws in both overlying endplates. Stable anterior cortical plate-screw construct and interbody grafts at the C6-C7 levels. Electronically Signed: Pilo Beyer MD at 12:22 EDT ,
== END | disposition home or self-care (01) ==
PROVIDERS: Visit Provider Orthopaedic Surgery
DX: M43.22 Fusion of spine, cervical region (principal); M54.2 Cervicalgia
CPT/HCPCS: 72141

== ENCOUNTER 2022-09-26 11:28 | Observation (INO) | payer BC, SELFPAY ==
--- NOTE | 2022-09-18 08:51 | EKG12_ITS ---
Test Reason : PREOP Blood Pressure : / mmHG Vent. Rate : 071 BPM Atrial Rate : 071 BPM P-R Int : 154 ms QRS Dur : 106 ms QT Int : 372 ms P-R-T Axes : 080 004 101 degrees QTc Int : 404 ms Normal sinus rhythm with sinus arrhythmia Right atrial enlargement Septal infarct , age undetermined ST & T wave abnormality, consider lateral ischemia Abnormal ECG Confirmed by OLIVIA AYOUB MD ([id number]), food editor DAVE WILEY ([id number]) on 09/19/2022 9:08:56 AM Referred By: BETHANIE QUINTEROS Confirmed By:OLIVIA AYOUB MD
[2022-09-18 09:43] LABS: Absolute Lymphocyte Count 1.82 X10^3/uL (0.83-4.51); Basophil# 0.07 X10^3/uL; Basophil% 0.9 % (0-1); Eosinophil# 0.16 X10^3/uL; Hematocrit 44.1 % (40-54); Lymphocyte # 1.82 X10^3/ul (0.83-4.51); Lymphocyte % 23.1 % (19-41); Mean Corpuscular Hgb 33.1 pg (27.0-32.0); Mean Corpuscular Volume 97.4 fL (80-94); Mean Platelet Vol. 9.2 fl (6.2-12.0); Monocyte# 0.77 X10^3/uL; Monocyte% 9.8 % (0-10); NRBC Flagged by Analyzer 0 % (0-5); Neutrophil # 5.03 X10^3/uL (2.7-7.7); Neutrophil % 63.9 % (47-70); Platelet Count 305 K/mm3 (150-450); RBC Distribution Width CV 12.8 % (11.6-14.6); RBC Distribution Width SD 45.7 fl (35.1-43.9); Red Blood Count 4.53 M/mm3 (4.6-6.2); White Blood Count 7.9 K/mm3 (4.4-11.0)
[2022-09-18 10:09] LABS: Magnesium 2.4 mg/dL (1.6-2.6)
[2022-09-18 10:12] LABS: Anion Gap 4 (5-15); BUN 15 mg/dL (7-18); BUN/Creat Ratio 16.1 RATIO (10-20); Calcium,Total 9.3 mg/dL (8.5-10.1); Chloride 108 mmol/L (98-107); Creatinine, Serum 0.93 mg/dL (0.70-1.30); EST Glomerular Filtration Rate 89 mL/min (>60); Est Glom Filt Rate - Afr Amer 107 mL/min (>60); Glucose 105 mg/dL (74-106); Potassium 4.4 mmol/L (3.5-5.1); Sodium Level 139 mmol/L (136-145)
[2022-09-18 11:10] LABS: HIV - WCH Non-Reactive (Nonreactive); Hepatitis B Surface Antibody Non-Reactive; Hepatitis C Antibody Non-Reactive (Nonreactive)
--- NOTE | 2022-09-18 13:16 | PCM.HP.BLA ---
History and Physical MR#: [id number] Acct: [id number] Name:ZACK MCKEON Rep #: [id number] : 1965 ? ? Provider: Dr. Jamaal Gurrola DO Age/Sex:? 57/M ? ? Location[place] [facility] [place] Status: Signed Intake Vital Signs ? 03/06/2212:55 Height 5 ft 11 in Intake Visit Reasons:?CERVICAL SPINE Chief Complaint: cervical fusion Is patient in pain?: Yes Allergies No Known Allergies Allergy Medications NK? 07/26/22 [History Confirmed 07/26/22] FOR[facility], LAT[facility] Medical History?(Updated 07/26/22 @ 09:[address] Jamaal Gurrola, ) Abnormal electrocardiogram Arthritis History of steroid therapy Injury of head and neck Leg cramps Premature atrial contractions Tobacco abuse Surgical History? Previous back surgery Social History? Smoking Status:? Current every day smoker tobacco type: cigarettes Tobacco: How many years used:? 40 HPI CERVICAL SPINE Details: Parts of this documentation were recorded by a scribe, this documentation accurately reflects the service provided and the decisions made by me, Dr. Jamaal Gurrola, DO ZACK RODRIGUEZ is a 57 year old M here today for s/p anterior cervical fusion C5-6 DOS: 03/06/22.? Patient complains of pain over his left cervical spine pain, radiating into his shoulder. He has numbness over his entire upper arm. Patient states that he had these symptoms since his last visit with the pain progressing. He denies any known injury. Patient denies any chiropractor. He is taking ibuprofen and tylenol for pain. Zack returns for follow-up at 5 months postop now.? I last saw him about 2 months ago and he was doing fairly well.? But since then he has gradually developed pain on the opposite side that is the left side of his neck he gets left-sided headaches and goes down his back of his shoulder and goes to the deltoid on the left.? Its not as bad as the pain was on the right before the surgery but he is afraid that it might get that way.? Basically he is describing the C5 nerve root which would be from the C4-5 above the second fusion the one that I did. On examination he does have a positive Spurling's to the left side now but he has no weakness of the deltoid but he has pain that goes into the back of the shoulder depending on how he holds his head.? He has good motor strength in all of the rest of the muscle groups in both upper extremities. X-rays of the cervical spine taken today demonstrate good position of the old fusion of course and the stand-alone cage that I put in at C5-6.? I am very suspicious however of the C4-5 level now.? We are ordering an MRI scan of the cervical spine to evaluate the C4-5 I will see him after that study. Coding Level of Care Code Off vis,est,level 2 Diagnoses Fusion of spine, cervical region? M43.22 Cervical disc disorder at C4-C5 level with radiculopathy? M50.121 Time Spent (min) 25 Assessment and Plan Assessment and Plan (1) Fusion of spine, cervical region: ?Status:?Acute (2) Cervical disc disorder at C4-C5 level with radiculopathy:
[2022-09-19 14:57] LABS: Hepatitis A AB, Total Negative (Negative)
[2022-09-26] VITALS (19 sets, daily range): BP systolic 100–141; BP diastolic 70–98; PULSE 67–98; RESP 8–18; TEMP 36.1–37.1; O2SAT 92–99; BMI 24.5
[2022-09-26] MEDS: dexAMETHasone 10 MG/ML Vial 8 MG IV (06:10)
[2022-09-26] MEDS: Magnesium 1 GM over 15 mins IV (06:15)
[2022-09-26] MEDS: Lactated Ringers 1,000 ML 15 ML IV (06:17)
--- NOTE | 2022-09-26 06:30 | RAD_ITS ---
STUDY: X-RAY - LUMBAR SPINE REASON FOR EXAM: Male, 57 years old. ANTERIOR FUSION C4-5 TECHNIQUE: 1 view(s) of the lumbar spine were obtained. COMPARISON: 07/26/2022 FINDINGS: Normal lumbar lordosis. There is no substantial scoliosis. Status post anterior cervical discectomy and fusion at C5/C6 and C6-C7 which is unchanged. Normal vertebral bodies and endplates. Normal disc space heights. The soft tissue structures are unremarkable. Endotracheal tube. RAD/Spine 1 View Any Level IMPRESSION: Status post anterior cervical discectomy and fusion at C5/C6 and C6-C7. Electronically Signed: Kai Darnell MD at 8:36 EST ,
[2022-09-26] MEDS: Acetaminophen 500 MG Tablet 1000 MG PO (06:34)
[2022-09-26 07:15] LABS: Bedside Glucose 91 mg/dL (74-106)
[2022-09-26] MEDS: Heparin 10,000 UNITS/10 ML Vial 10000 UNITS ×2 (07:15→08:50)
--- NOTE | 2022-09-26 07:30 | DISC_PTH ---
PATIENT: ZACK RODRIGUEZ LOC: MS3 U#:[id number] AGE/SX: 57/M ROOM: MS319 RE09/26/[address]: Dr. Jamaal Gurrola DO : 1965 BED: 1 DIS: 09/27/2022 SPEC #: [id number] RECD: 09/26/22 13:50 STATUS: KARLA REAllan #: [id number] VONDA: 09/26/22 07:[address]: Jamaal Gurrola DEPT: SURGICAL PATHOLOGY RECD BY: Norma Lyles ENTERED: 09/27/22 07:50 SP TYPE: DISC OTHR DR: Dr. Mar Alejandro MD Tissues: Intervertebral disc, NOS Procedures: Surgery Specimen Level III HEADER OPERATION: ERAS, anterior cervical fusion C4-C5 PRE-OP DIAGNOSIS: Cervical disc disorder at C4-C5 level with radiculopathy TISSUE SUBMITTED: Cervical 4-5 disc MICROSCOPIC DIAGNOSIS Cervical disc 4-5, excision: Degenerative and focal reparative change. AM:christopher 09/28/2022 MICROSCOPIC DESCRIPTION Slides are reviewed. GROSS DESCRIPTION Received in fixative is one container labeled with the patient's name and designated cervical disc 4-5. The specimen consists of multiple irregular and indurated fragments of white-dotson soft tissue that in aggregate measure 5 x 4 x 0.3 cm. Field Mechanic portions are submitted in one cassette. / AM:christopher 09/27/2022 TC:5 CPT: 74560
[2022-09-26] MEDS: Cefazolin 2 GM in 0.9% Normal Saline 100 ML IV (07:59)
[2022-09-26] MEDS: THROMBIN (RECOMBINANT) 20,000 UNIT VIAL 20000 UNIT TOPICAL (08:38)
--- NOTE | 2022-09-26 09:35 | RAD_ITS ---
STUDY: X-RAY - CERVICAL SPINE REASON FOR EXAM: Male, 57 years old. CERVICAL FUSION C4-5 TECHNIQUE: 1 view(s) of the cervical spine were obtained. COMPARISON: None FINDINGS: The localization instrument is seen along the anterior aspect of the C4-C5 level. Prior anterior fusion at the C5-C6 and C6-C7 levels. RAD/Spine 1 View Any Level IMPRESSION: Localization instrument is seen along the anterior aspect of the C5-C6 disc space level. Status post anterior fusion at the C5-C6 and C6-C7 levels. Electronically Signed: Bhargav Vail MD at 10:08 EST ,
--- NOTE | 2022-09-26 10:52 | RAD_ITS ---
STUDY: X-RAY - CERVICAL SPINE REASON FOR EXAM: Male, 57 years old. CERVICAL FUSION C4-5 TECHNIQUE: 1 view(s) of the cervical spine were obtained. COMPARISON: 07/26/2022 FINDINGS: Normal anterior atlantoaxial articulation. Normal odontoid process. Normal cervical lordosis. Normal vertebral bodies and endplates. Interval anterior cervical discectomy and fusion at C4/C5 in anatomic alignment. Prior anterior cervical discectomy and fusion at C5/C6 and C6-C7. Normal visualized intervertebral neuroforamina. The soft tissue structures are unremarkable. RAD/Spine 1 View Any Level IMPRESSION: Interval anterior cervical discectomy and fusion at C4/C5 with anatomic alignment. Electronically Signed: Kai Darnell MD at 17:53 EST ,
--- NOTE | 2022-09-26 11:35 | PCM.OPRPT ---
Report of Operation Description of Surgical Findings:: Preop operative diagnosis: Herniated disc and foraminal stenosis C4-5 on the left Postoperative diagnosis: The same Procedures: #1 anterior cervical fusion C4-5 CPT code 89438 #2 application of spine plate C4-C5 CPT code 77374/59 #3 insertion of cage C4-5 CPT code 27021 Surgeon: Dr. Gurrola assistant professor of theater: Dimitris WATSON Anesthesia: General endotracheal administered by [facility] EBL: Less than 20 cc Drains: 1/4 inch Bertha Complications: None Procedure: Patient was taken to the OR where he was placed in supine position on the operating table he was then placed under general endotracheal anesthesia. A Frances catheter was inserted. Neuro monitoring placed their leads on the patient. The cervical spine and the left iliac crest area was then prepped and draped in standard fashion. First we obtained the bone marrow aspirate from the left ASIS. We were able to obtain 30 cc of BMA which were handed off to the blood or blood bank technician when turned and ran it through her machine concentrated the patient's own stem cells and them from the other cells and gave them back to us in the OR. I then made a transverse incision starting in the midline to the edge of the right sternocleidomastoid muscle. Note that we did had a preoperative x-ray to nadine the spot where I will start the incision. Note that the approach was extremely difficult because of scar tissue from the level below and the level below that. Then elevated subcutaneous tissues off of the platysma above and below. I split the platysma longitudinally in line with its fibers. Then we began the difficult process of going through the scar tissue by first opening the superficial cervical fascia then the pretracheal fascia. Again the approach was very difficult he was quite vascular in the area and I had to cauterize certain small vessels mostly 5 through the scar. It was hard to tell what was what the cause of all the scar tissue but nonetheless I finally was able to feel the anterior spine and open the small area which turned out to be over the C4 vertebra I followed it down and opened it in its midline with cautery identified the space I elevated the scar tissue in the thickened anterior longitudinal ligament off of the disc I put a needle in place and we took an intraoperative x-ray to confirm that we were indeed at C4-5. Prior to removing the needle I cauterized a hole in it to assure that we would not lose it. I then used cautery to cauterize the anterior large to the ligament and periosteum above and below the disc base to prepare for the eventual 4-hole plate. Then cauterized the edge of the coli muscles on either side elevated them off of the disc space and per self-retaining black leather buffer retractors in place. We thoroughly irrigated with copious amounts of sterile saline throughout the case and therapy is using over a liter of fluid by the end of the case. I then cut the anterior annulus with a 15 blade and removed it and began removing disc from within the disc space with pituitary rongeurs. I then removed more nucleus and annulus posteriorly with curettes of different sizes. I remove the cartilage off the endplates near the area of the left foramen. I then used a rao bur to bur the uncinate process down to a thin shell. Note that is it turned out a part of what we saw on the MRI scan was protruded disc in addition to the foraminal stenosis making it a bad combination for the patient thus the severe C5 radiculopathy that he experienced. Pulled the disc out with curettes noted it was annular disc and not really nuclear disc. With some effort we finally got it directly off of the base of the nerve root and then checked the foramen with a nerve hook and was found to be quite open. I then removed remaining cartilage off both endplates with sharp curettes and we had to use intervertebral body distractor on both sides as we did all this. I checked the right foramen and it was open. I then used a rao bur to bur the anterior anterior lips at the bottom of C4 and the top of C5. These were flattened out. Once I got all the cartilage off the endplates I used the bur to better shape the space by removing some of bone posteriorly and on each side of the see 5 to allow for the large cage. We then filled the large 8 mm high as 8 degree cage with allograft bone that was processed to be a sponge. Once filled it was then soaked the patient's stem cells that we obtained earlier. Anesthesia pulling on the head it was then tamped into place and countersunk a couple of millimeters. A 26 mm plate was then used note that I did bend the plate into more lordosis. Once centered we were able to use a pen to hold in place and then we used the awl to punch the other 3 holes 1 at a time followed by insertion of 14 mm screws. These were put through the locking mechanisms of the cage finally the pin was removed and the screw was put in its place and again through the locking mechanism. Amniotic membrane was then placed over the plate to prevent adhesions and more scar formation that could affect the esophagus. An intraoperative x-ray was then taken to demonstrate excellent position of the plate the screws and the cage. We placed a 1/4 inch Bertha drain in place I then closed the platysma and running fashion with 5-0 Vicryl. The skin was approximated using 5-0 Vicryl underneath with no need for outside stitches. Sterile dressings were applied and a safety pin was placed through the drain to prevent a suction into the wound. This is the end of operative summary on Ludwig Arita. This is Dr. Gurrola dictating.
[2022-09-26] MEDS: Lactated Ringers 1,000 ML 100 ML IV ×2 (12:33→15:53)
[2022-09-26 13:40] LABS: Bedside Glucose 122 mg/dL (74-106)
[2022-09-26] MEDS: dexAMETHasone 4 MG/ML Vial IV ×2 (14:22→21:53)
--- NOTE | 2022-09-26 15:17 | NURSING ---
soft collar remains in place to neck
[2022-09-26] MEDS: Cefazolin 1 GM/50 ML BAG IV (15:53)
[2022-09-26] MEDS: Ondansetron 4 MG/2 ML Vial IV (16:03)
[2022-09-26] MEDS: Morphine 4 MG/ML Syringe IV ×2 (16:03→18:40)
[2022-09-26] MEDS: 0.9% Saline Lock 10 ML Syringe IV ×3 (16:04→21:56)
--- NOTE | 2022-09-26 16:14 | NURSING ---
pt states he would like johnson catheter removed.
--- NOTE | 2022-09-26 16:22 | PCM.PN.HOSP ---
Subjective Subjective Patient reports discomfort with the catheter and requesting to be out soon as he states previously he did have an associated UTI. He also notes ongoing cervical neck anterior discomfort with accommodation of stabbing, aching and dull throbbing, currently 7-9 out of 10 in severity and awaiting pain medications. He is only had a couple sips of water with nurse planning to administer currently nausea medications as well. Patient also requesting a nicotine patch as he is having increased cravings. He notes upper extremity and lower extremity function appropriate and there is no paresthesias. Patient denies fevers, chills, nausea, emesis, abdominal pain, chest pain or dyspnea. Objective Data Objective Data Vital Signs: Vital Signs Temp Pulse Resp BP Pulse Ox O2 Del Method O2 Flow Rate 97.6 F L 76 16 116/81 H 93 Room Air 2 09/26/22 15:02 09/26/22 15:02 09/26/22 15:02 09/26/22 15:02 09/26/22 15:02 09/26/22 15:02 09/26/22 15:02 Oxygen Flow Rate (L/min) 2 Oxygen Delivery Method Room Air Weight: 176 lb 5.917 oz Body Mass Index (BMI) 24.5 Intake & Output: Intake and Output for Last 24 Hours 09/24/22 09/25/22 09/26/22 23:59 23:59 23:59 Intake Total 2348.66 / 2348.66 Output Total 1400 / 1400 Balance 948.66 / 948.66 Lab / Micro Data Result Diagrams: 09/18/22 08:52 09/18/22 08:52 Labs: Laboratory Results - last 24 hr 09/26/22 06:23: POC Glucose 91 09/26/22 13:21: POC Glucose 122 H Micro: Microbiology 09/18/22 08:52 Swab (Method) Nasal Screen MRSA/MSSA - Final Radiography Diagnostic Testing: Radiology Impression Spine X-Ray 09/26/22 09:35 IMPRESSION: Localization instrument is seen along the anterior aspect of the C5-C6 disc space level. Status post anterior fusion at the C5-C6 and C6-C7 levels. Electronically Signed: Bhargav Vail MD at 10:08 EST , Physical Exam Narrative Physical Examination: General: Awake, alert, oriented x 3 and cooperative, seated upright in medical surgical bed, uncomfortable appearing Skin: Normal color, normal turgor, no icterus, no cyanosis except for recent OR with anterior cervical neck dressing in place with no drainage noted. HEENT: AT/NC, EOMI, PERRLA, mildly dry MM, unable to discern carotid bruit or JVD given anterior cervical neck dressings and soft neck brace in place. Lungs: Mild diminished, greater bases, appropriate effort, no rales, ronchi or wheezing. Heart: Regular rate and rhythm; no gallop, rub audible. Abdomen: Soft, NTTP, ND, mildly hyperactive BS, no HSM. Extremities: No cyanosis, clubbing, or edema. Neurological: Patient awake, alert, oriented as noted, cognitive function intact; pupils equally reactive to light and accommodation, cranial nerves II-XII grossly normal, moving all 4 extremities, no focal deficits, sensation intact, given recent OR strength moderately global decreased. Psychiatric: Affect appears uncomfortable, no acute evidence of depressive or anxiety feelings. Assessment & Plan Assessment/Plan (1) Cervical disc disorder at C4-C5 level with radiculopathy: PLAN: Plan The patient is a 57 y/o M w/ PMHx: Tobacco use, Allergic rhinits, Chronic back pain s/p prior surgical intervention who presents to the [facility] on 09/26/22 secondary to planned intervention per Dr. Gurrola for intractable discomfort and debility associated with herniated disc and foraminal stenosis C4-5 on the left. #1. Intractable back pain/cervical radiculopathy associated with herniated disc with foraminal stenosis C4-5 on the left: Failed conservative therapies and treatments, admitted per Dr. Gurrola for planned anterior cervical fusion C4-5 with application of spinal plate and insertion of cage, post-operative pain management, bowel regimen, DVT Prophylaxis, PT/OT/CM per Orthopedic surgery discretion. #2. Tobacco Abuse: Encouraged cessation, inpatient consultation per RT, NR if desired. #3. Allergic rhinitis: Patient uses Flonase but only as needed, may add if necessary if symptom onset. #4. DVT prophylaxis: SCDs, chemoprophylaxis per surgery discretion given recent OR. Charges/Coding Visit Charges Inpatient E&M: 69819 Subs Hosp L2
[2022-09-26] MEDS: oxyCODONE 5 MG Tablet PO ×2 (17:06→21:52)
[2022-09-26] MEDS: Acetaminophen 325 MG Tablet 650 MG PO (21:52)
[2022-09-26] MEDS: Zolpidem Tartrate 5 MG Tablet PO (21:59)
[2022-09-27] MEDS: Cefazolin 1 GM/50 ML BAG IV (01:15)
[2022-09-27] MEDS: dexAMETHasone 4 MG/ML Vial 2 MG IV ×2 (01:16→08:27)
[2022-09-27 01:21] VITALS: BP 119/78; PULSE 76; RESP 18; TEMP 36.9; O2SAT 93
[2022-09-27 01:25] VITALS: BP 119/78; PULSE 76; RESP 18; TEMP 36.9; O2SAT 93
[2022-09-27] MEDS: Lactated Ringers 1,000 ML 100 ML IV (01:39)
[2022-09-27 06:48] VITALS: BP 123/78; PULSE 80; RESP 18; TEMP 36.9; O2SAT 98
[2022-09-27] MEDS: Acetaminophen 325 MG Tablet 650 MG PO ×2 (06:53→10:58)
[2022-09-27 08:23] VITALS: BP 116/77; PULSE 67; RESP 18; TEMP 36.7; O2SAT 97
[2022-09-27] MEDS: FLU VACC QS2022-23(6MOS UP)/PF 60 MCG/0.5 ML SYRINGE IM (08:27)
[2022-09-27] MEDS: 0.9% Saline Lock 10 ML Syringe IV (08:28)
--- NOTE | 2022-09-27 09:08 | PCM.PN.HOSP ---
Subjective Subjective Follow-up for cervical spine surgery. Patient does not have hypertension and diabetes but has chronic PSC and abnormal electrocardiogram. He has double heartbeat/extra heartbeat for long time. Patient had anterior cervical fusion C5-6 and C6-7. Patient has been chronic left-sided cervical spine pain radiating to his left shoulder with numbness of upper arm. Patient has pain along C5 nerve root distribution. Patient felt mild right-sided arm pain sometimes but not as bad as the left side. Objective Data Objective Data Vital Signs: Vital Signs Temp Pulse Resp BP Pulse Ox O2 Del Method O2 Flow Rate 98.0 F 67 18 116/77 97 Room Air 2 09/27/22 08:23 09/27/22 08:23 09/27/22 08:23 09/27/22 08:23 09/27/22 08:23 09/27/22 08:23 09/26/22 15:02 Oxygen Flow Rate (L/min) 2 Oxygen Delivery Method Room Air Weight: 176 lb 5.917 oz Body Mass Index (BMI) 24.5 Intake & Output: Intake and Output for Last 24 Hours 09/25/22 09/26/22 09/27/22 23:59 23:59 23:59 Intake Total 2398.66 / 2398.66 2311.67 / 2311.67 Output Total 1400 / 1400 Balance 998.66 / 998.66 2311.67 / 2311.67 Lab / Micro Data Result Diagrams: 09/18/22 08:52 09/18/22 08:52 Labs: Laboratory Results - last 24 hr 09/26/22 13:21: POC Glucose 122 H Micro: Microbiology 09/18/22 08:52 Swab (Method) Nasal Screen MRSA/MSSA - Final Radiography Diagnostic Testing: Radiology Impression Spine X-Ray 09/26/22 06:30 IMPRESSION: Status post anterior cervical discectomy and fusion at C5/C6 and C6-C7. Electronically Signed: Kai Darnell MD at 8:36 EST , Spine X-Ray 09/26/22 09:35 IMPRESSION: Localization instrument is seen along the anterior aspect of the C5-C6 disc space level. Status post anterior fusion at the C5-C6 and C6-C7 levels. Electronically Signed: Bhargav Vail MD at 10:08 EST , Spine X-Ray 09/26/22 10:52 IMPRESSION: Interval anterior cervical discectomy and fusion at C4/C5 with anatomic alignment. Electronically Signed: Kai Darnell MD at 17:53 EST , Physical Exam Narrative Physical exam General: Alert, Oriented x3, Cooperative HEENT: Atraumatic, PERRLA, EOMI, Normocephalic Oral: No Gingival or Mucosal Lesions/ Ulcerations Neck: Surgical dressing over right anterior neck is dry. Drain present. Supple, No JVD Lungs: Air entry diminished in bilateral lung bases. No crepitation/rhonchi Cardiovascular: Frequent PACs, extra beats, Normal S1, Normal S2, No murmurs Abdomen: Bowel Sounds Present, Soft, Non Tender, Non-Distended : No renal angle tenderness. No suprapubic tenderness. Extremities: No edema, Capillary Refill Less than 3 Seconds Skin: No rashes, No breakdown Musculoskeletal: No Tenderness to Palpation of Joints or Extremities Neurological: Cranial nerves II-XII grossly intact, DTR 2+/4 and Symmetrical, Neuro grossly intact Psych/Mental Status: Normal Affect, Appropriate. Assessment & Plan Assessment/Plan (1) Cervical disc disorder at C4-C5 level with radiculopathy: PLAN: Plan The patient is a 57 y/o M w/ PMHx: Tobacco use, Allergic rhinits, Chronic back pain s/p prior surgical intervention who presents to the [facility] on 09/26/22 secondary to planned intervention per Dr. Gurrola for intractable discomfort and debility associated with herniated disc and foraminal stenosis C4-5 on the left. #1. Intractable back pain/cervical radiculopathy over right C4 distribution associated with herniated disc with with foraminal stenosis C4-5 on the left: Failed conservative therapies and treatments, admitted per Dr. Gurrola for planned anterior cervical fusion C4-5 with application of spinal plate and insertion of cage, post-operative pain management, bowel regimen, DVT Prophylaxis. Patient is medically stable for discharge. #2. Occasional ectopic ventricular beat: Twelve-lead EKG from September 18 and February 2022 followed. Normal sinus rhythm with sinus arrhythmia, GEE and occasional ectopic ventricular beat. 2D echo on 03/01/2022 EF 60%, moderate concentric LVH, stage II diastolic dysfunction overall suggestive of chronic HFpEF. Patient states he has a good work efficiency and exercise tolerability. He does not get short of breath on exertion or chest pain or pressure in the past. Patient otherwise to monitor for symptoms regarding dizziness, lightheadedness, dyspnea on exertion or chest pressure. 3. Tobacco Abuse: Encouraged cessation, inpatient consultation per RT, NR if desired. #3. Allergic rhinitis: Patient uses Flonase but only as needed, may add if necessary if symptom onset. #4. DVT prophylaxis: SCDs, chemoprophylaxis per surgery discretion given recent OR. Charges/Coding Visit Charges OBSV E&M: 36500 Subsequent observation care L2
[2022-09-27] MEDS: oxyCODONE 5 MG Tablet PO (10:59)
[2022-09-27 11:01] VITALS: BP 125/72; PULSE 87; RESP 18; TEMP 36.6; O2SAT 97
--- NOTE | 2022-09-27 11:40 | CASEMGMT ---
RN CM Face to Face with patient for initial transition planning/care coordination assessment. RN CM introduced self and role at [facility]. Patient lying in bed, alert and oriented, at bedside. Patient willing to participate in assessment and is able to answer all questions appropriately. Care providers, pharmacy, and demographics verified. Patient wishes to discharge home, denies need for home health at this time. Patient states he has no further needs or concerns at this time. CM to follow for discharge planning needs that may arise. PCP: Agustín Specialists: luiz Gurrola; Preferred Pharmacy: [facility]; [facility] retail at discharge. Insurance: [employer] Prescription Benefit: yes Living Will/HPOA: none LNOK: Living Arrangements: Patient lives with in a 2 story home with bed and bath on first floor. 2 steps and railing to enter the home. Patient states he is independent at home. Transportation: DME/HHC: Patient denies DME in the home. No previous HHC. Disposition Plan: Patient to discharge home with family support and follow-up plans in place. Caryl BRITT, RN, CM
--- NOTE | 2022-09-27 12:30 | PCM.DC ---
Discharge Instructions Activity Return to work on:: 10/11/22 May shower in (days): 5 May resume sexual activity in: 10-14 days Lifting Restrictions: 20# Dressing / Incision Remove Dressing in: 4 days Follow Up Care Test Results: Test results from this visit will be discussed in further detail at your follow-up appointment, if applicable. Discharge Plan Admission Admit Date/Time: 09/26/22 11:28 Primary Reason for Your Visit: cervical fusion Attending Provider: Jamaal Gurrola Primary Care Provider: PRINCESS SEGAL Consulting Providers: Mar Alejandro Discharge Orders/Prescriptions Prescriptions: No Action ibuprofen 800 mg Tablet 800 mg PO Q8H PRN (Reason: Pain) fluticasone propionate [Flonase Allergy Relief] 50 mcg/actuation [place],Suspension 1 spray INTRANASAL PRN PRN (Reason: ALLERGIES) Rx Instructions: administer into each nostril oxycodone-acetaminophen 5-325 mg tablet 1 tab PO Q6H PRN (Reason: pain) 10 Days Qty: 40 0RF Referrals / Follow Up: PRINCESS SEGAL [Other] Disposition Disposition (needs filled in before D/C Order can be placed): Home, Self Care
--- NOTE | 2022-09-27 12:33 | DS.PCM_ITS ---
Providers Date of Admission: 09/26/22 Primary Care Physician: PRINCESS SEGAL Attending Physician: This is a discharge summary on Ludwig Arita. Mr. Oliva was admitted yesterday 26 September. He underwent anterior cervical fusion at C4-5. He tolerated the procedure well. Today he reports that he has a pain in the left side of his neck that went into his left shoulder in the classic C5 dermatome is completely resolved. His voice is clear. He is very pleased with his outcome. I change his dressing and removed his drain. Incision is dry and healing well. Neurologically is intact in both upper and lower extremities. Gave him and his instructions regarding his activity etc. He may return to work in [address] may drive his car in 2 weeks. He may shower in 5 days. In 4 days his is to remove the dressing. It is to be left open to the air after that. He knows to call me in the event that he needs me between now and his appointment that he has in 2 weeks. This is the end of discharge summary on Ludwig Arita. This is Dr. Gurrola dictating. Consultations 09/26/22 12:33 Consult: Hospitalist Routine Consulting Provider: Mar Alejandro Reason for Consult: med management EMERGENT Consult: No MD Notified: Yes Date Notified: 09/26/22 Time Notified: 15:03 Method of Notification: Text Reason For Visit: ANTERIOR LT CERVICAL FUSION C4-5 Diagnosis Discharge Diagnosis (1) Cervical disc disorder at C4-C5 level with radiculopathy: Status: Acute Code(s): M50.121 - Cervical disc disorder at C4-C5 level with radiculopathy Medications at Discharge Home Medications fluticasone propionate 50 mcg/actuation nasal spray,suspension (Flonase Allergy Relief) 1 spray intranasal PRN PRN ALLERGIES 09/13/22 ibuprofen 800 mg tablet 800 mg PO Q8H PRN Pain 09/13/22 oxycodone-acetaminophen 5 mg-325 mg tablet 1 tab PO Q6H PRN pain 10 days #40 tabs 09/27/22 Weight / BMI Weight Weight: 176 lb 5.917 oz Body Mass Index (BMI) 24.5 ABG / Lab / Microbiology Data Result Diagrams: 09/18/22 08:52 09/18/22 08:52 Laboratory: Laboratory Results - last 24 hr 09/26/22 13:21: POC Glucose 122 H Microbiology: Microbiology 09/18/22 08:52 Swab (Method) Nasal Screen MRSA/MSSA - Final Radiography Diagnostic Testing: Radiology Impression Spine X-Ray 09/26/22 06:30 IMPRESSION: Status post anterior cervical discectomy and fusion at C5/C6 and C6-C7. Electronically Signed: Kai Darnell MD at 8:36 EST , Spine X-Ray 09/26/22 09:35 IMPRESSION: Localization instrument is seen along the anterior aspect of the C5-C6 disc space level. Status post anterior fusion at the C5-C6 and C6-C7 levels. Electronically Signed: Bhargav Vail MD at 10:08 EST , Spine X-Ray 09/26/22 10:52 IMPRESSION: Interval anterior cervical discectomy and fusion at C4/C5 with anatomic alignment. Electronically Signed: Kai Darnell MD at 17:53 EST , D/C Instructions Return to work on: 10/11/22 May shower in (days): 5 May resume sexual activity in: 10-14 days Meaningful Use Info Meaningful Use Diagnoses (Choose all that apply): None applicable Discharge Plan Admission Admit Date/Time: 09/26/22 11:28 Primary Reason for Your Visit: cervical fusion Attending Provider: Jamaal Gurrola Primary Care Provider: PRINCESS SEGAL Consulting Providers: Mar Alejandro Discharge Orders/Prescriptions Prescriptions: No Action ibuprofen 800 mg Tablet 800 mg PO Q8H PRN (Reason: Pain) fluticasone propionate [Flonase Allergy Relief] 50 mcg/actuation [place],Suspension 1 spray INTRANASAL PRN PRN (Reason: ALLERGIES) Rx Instructions: administer into each nostril oxycodone-acetaminophen 5-325 mg tablet 1 tab PO Q6H PRN (Reason: pain) 10 Days Qty: 40 0RF Referrals / Follow Up: PRINCESS SEGAL [Other] Disposition Disposition (needs filled in before D/C Order can be placed): Home, Self Care
== END 2022-09-27 13:00 | disposition home or self-care (01) ==
LOC: SDC 12:12 → MS3 12:12
PROVIDERS: Anesthesiology; Admitting Provider Orthopaedic Surgery; Referring Provider Orthopaedic Surgery; Visit Provider Orthopaedic Surgery
PROC: (CPT 22551; principal; 2022-09-26 07:00)
DX: M50.121 Cervical disc disorder at C4-C5 level with radiculopathy (principal); M48.02 Spinal stenosis, cervical region; F17.210 Nicotine dependence, cigarettes, uncomplicated; M19.90 Unspecified osteoarthritis, unspecified site; Z98.1 Arthrodesis status; Z23 Encounter for immunization
CPT/HCPCS: 22551; 20931; 22853; 22845; 00670; 36415; 72020; 80048; 82962; 83735; 85025; 86703; 86706; 86708; 86803; 87081; 88304; 93005; 96361; 96365; 96366; 96375; 96376; 97162; 97530; 99218; 99251; 99406; C1713; J7120; 90686; A4216; G0378; G0463; J2405; J3475

== ENCOUNTER → 2023-05-10 | Outpatient (CLI) | payer BC, SELFPAY ==
[2023-05-10 08:00] LABS: Potassium 4.4 mmol/L (3.5-5.1)
== END | disposition home or self-care (01) ==
LOC: LAB 06:25
DX: E87.5 Hyperkalemia (principal)
CPT/HCPCS: 36415; 84132

== ENCOUNTER → 2025-01-28 | Outpatient (CLI) | payer BC, SELFPAY ==
--- NOTE | 2025-01-28 14:15 | RAD_ITS ---
PROCEDURE: SHOULDER MIN 2 VIEWS 01/28/2025 REASON FOR EXAM: PAIN TECHNIQUE: Four views left shoulder COMPARISON: None available FINDINGS: No fracture or dislocation. The joint spaces appear within limits. No osseous lesion identified. Visualized left lung appears clear. Cervical hardware noted. RAD/Shoulder min 2 Views IMPRESSION: Study appears within limits as above. Reading Location: [id number]
[2025-01-28 15:12] LABS: Hematocrit 38.7 % (40-54); Hemoglobin 13.1 g/dL (13.0-16.5); Mean Corp Hgb Conc 33.9 g/dL (32-36); Mean Corpuscular Hgb 32.4 pg (27.0-32.0); Mean Corpuscular Volume 95.8 fL (80-94); Mean Platelet Vol. 9.8 fl (6.2-12.0); Platelet Count 319 K/mm3 (150-450); RBC Distribution Width CV 13.1 % (11.6-14.6); RBC Distribution Width SD 46.3 fl (35.1-43.9); Red Blood Count 4.04 M/mm3 (4.6-6.2); White Blood Count 12.4 K/mm3 (4.4-11.0)
[2025-01-28 16:25] LABS: Cholesterol 223 mg/dL (<=200); High Density Lipoprotein 51 mg/dL; Low Density Lipoprotein Calc. 120 mg/dL; PSA,Total- Diagnostic 0.57 ng/mL (0.00-4.00); Thyroid Stim Hormone (TSH) 0.738 uIU/mL (0.300-4.200); Triglycerides 260 mg/dL; Very Low Density Lipoprotein 52 mg/dL (5-40); cholesterol:hdl ratio screen 4.37
[2025-01-28 16:26] LABS: ALB/GLOB Ratio 1.7 RATIO (0.9-2.4); AST(SGOT) 21 U/L (<=37); Alanine Aminotransfer ALT/SGPT 17 U/L (<=46); Albumin, Serum 4.3 g/dL (3.5-5.0); Alkaline Phosphatase 60 U/L (40-129); Anion Gap 14 (5-15); BUN 20 mg/dL (4-19); BUN/Creat Ratio 19.7 RATIO (10-20); Calcium,Total 9.3 mg/dL (7.6-11.0); Chloride 105 mmol/L (98-108); Creatinine, Serum 0.99 mg/dL (0.70-1.20); EST Glomerular Filtration Rate 87 (>60); Globulin 2.6 g/dL (2.2-4.2); Glucose 171 mg/dL (70-99); Potassium 4.2 mmol/L (3.3-5.1); Protein, Total 6.9 g/dL (5.9-8.4); Sodium Level 139 mmol/L (133-145); Total Bilirubin 0.17 mg/dL (0.00-1.30)
== END | disposition home or self-care (01) ==
LOC: LAB 13:47
DX: Z00.00 Encounter for general adult medical examination without abnormal findings (principal); M25.512 Pain in left shoulder
CPT/HCPCS: 36415; 73030; 80053; 80061; 84153; 84443; 85027